=== PATIENT | female | born 1990 | race Caucasian/White ===

== ENCOUNTER → 2020-11-12 16:09 | Outpatient (BNV) | payer MEDICAID, SELFPAY | PROVIDERS: PCP Nurse Practitioner Family; Visit Provider Internal Medicine Medical Oncology | DX: D64.9 Anemia, unspecified (principal) | CPT/HCPCS: 99213; 99214 ==

== ENCOUNTER 2020-11-18 14:15 | Outpatient (REF) | payer MEDICAID, SELFPAY | END 2020-11-18 14:16 | disposition home or self-care (01) | LOC: HO.MDS 14:15 | PROVIDERS: Visit Provider Internal Medicine Medical Oncology | DX: D50.9 Iron deficiency anemia, unspecified (principal) | CPT/HCPCS: 96365; J1439 ==

== ENCOUNTER 2020-11-29 11:51 | Outpatient (REF) | payer MEDICAID, SELFPAY | END 2020-11-29 11:52 | disposition home or self-care (01) | LOC: HO.MDS 11:51 | PROVIDERS: Visit Provider Internal Medicine Medical Oncology | DX: D50.9 Iron deficiency anemia, unspecified (principal) | CPT/HCPCS: 96365; J1439 ==

== ENCOUNTER 2020-12-14 13:12 | Emergency (ER) | payer MEDICAID, SELFPAY ==
[2020-12-14 17:45] VITALS: BP 156/92; PULSE 81; RESP 20; TEMP 37.3; O2SAT 100; BMI 29.2
[2020-12-14 18:27] LABS: COVID-19 Test Negative (Negative)
--- NOTE | 2020-12-14 19:10 | ED_ITS ---
HPI - URI/Sore Throat General Chief Complaint: Upper Respiratory Symptoms Stated Complaint: COUGH FEVER SORE THROAT Time Seen by Provider: 12/14/20 19:02 Source: patient Mode of arrival: ambulatory Limitations: no limitations History of Present Illness HPI Narrative: 30-year-old here with complaints of cough which is dry, subjective fevers and sore throat with rhinorrhea x2 days. No shortness of breath, chest pain, leg swelling or pain. Related Data Home Medications Medication Instructions Recorded Confirmed acetaminophen [Tylenol] 325 mg PO QID PRN 11/12/20 11/12/20 cetirizine [Zyrtec] 10 mg PO DAILY 11/12/20 11/12/20 Previous Rx's Medication Instructions Recorded folic acid 1 mg PO DAILY #90 tab 11/12/20 guaifenesin 200 mg PO Q6H PRN #473 ml 12/14/20 Allergies Allergy/AdvReac Type Severity Reaction Status Date / Time influenza virus vaccine, Allergy Intermediate FEVER, Verified 12/14/20 18:57 specific DIARRHEA [FLU VACCINE] avocado [AVOCADO] Allergy Unknown ITCHING Verified 12/14/20 18:57 bee pollen [BEE STINGS] Allergy Unknown SWELLING Verified 12/14/20 18:57 nut - unspecified [nut] Allergy Unknown ITCHING Verified 12/14/20 18:57 shellfish derived Allergy Unknown ITCHING Verified 12/14/20 18:57 [SHELLFISH DERIVED] avacado Allergy Unknown Difficulty Uncoded 12/14/20 18:57 Breathing bee stings Allergy Unknown Swelling Uncoded 12/14/20 18:57 pistachios Allergy Unknown Difficulty Uncoded 12/14/20 18:57 Breathing seafood Allergy Unknown SOB, rash Uncoded 01/19/20 00:00 seasonal allergies Allergy Unknown Nasal Uncoded 12/14/20 18:57 congestion Review of Systems Review of Systems: Yes all other systems are reviewed and are negative Constitutional: Constitutional: Reports no additional constitutional complaints, Denies body ache(s), Denies chills, Reports fever(s) (Subjective), Denies headache(s) and Denies weakness Eyes: Eyes: Reports no additional eye complaints and Denies change in vision ENT: Reports system reviewed and no additional complaints, except as documented, Denies dizziness, Denies headache(s), Denies nasal congestion, Reports nasal discharge, Denies neck pain and Reports sore throat Cardiovascular: Cardiovascular: Reports no additional cardiovascular complaints, Denies chest pain, Denies leg edema and Denies dyspnea Respiratory: Respiratory: Reports no additional respiratory complaints, Reports cough and Denies dyspnea Gastrointestinal: Gastrointestinal: Reports no additional gastrointestinal complaints, Denies abdominal pain, Denies diarrhea, Denies nausea and Denies vomiting Genitourinary: Genitourinary: Reports no additional female genitourinary complaints and Denies urinary incontinence Musculoskeletal: Musculoskeletal: Reports no additional musculoskeletal complaints, Denies back pain, Denies arthralgias, Denies joint swelling, Denies neck pain, Denies numbness and Denies tingling Integumentary/Breasts: Skin/Breast: Reports system reviewed and no additional complaints, except as docu and Denies rash Neurologic: Denies Abnormal speech present, Denies dizziness, Denies headache( s), Denies numbness, Denies tingling and Denies weakness PMFSH Past Medical History Attestation statement: The following information was validated with the patient. Source: old records reviewed and nursing notes reviewed Medical History Anemia Surgical History H/O: Hx of cholecystectomy Family History Family History Maternal Grandmother Diabetes Asthma Mother High cholesterol Anemia Arthritis Social History Social History Advance Directives: Yes Advance Directives Information Provided: No Advance Directives on File: No Patient : No Physical Exam Vital Signs: Vital Signs: Last Vital Signs Temp 99.1 F 12/14/20 17:45 Pulse 81 12/14/20 17:45 Resp 20 12/14/20 17:45 BP 156/92 H 12/14/20 17:45 Pulse Ox 100 12/14/20 17:45 Body Mass Index 29.2 Const: General: cooperative, healthy appearing, comfortable and no acute distress Orientation/consciousness: patient oriented x3 Limitations: no limitations HENMT: Head: Yes normal to inspection Ears: hearing grossly normal bilaterally General nose exam: Normal external nose present Face and sinus: Yes normal facial exam Mouth: Normal oral and palatal mucosa present Throat: Yes posterior oropharynx normal Eyes: General: appearance normal, both eyes and all related structures Pupils: Equal, round and reactive pupils present Neck: Neck: Yes normal visual inspection Chest: Chest palpation & inspection: normal inspection of the chest Resp: Effort & Inspection: normal respiratory effort Auscultation: clear to auscultation bilaterally Cardio: Rate: regular rate Rhythm: regular rhythm Peripheral pulses: Peripheral pulses 2+ throughout GI: Inspection: Yes normal to inspection Palpation (GI): Soft to palpation and nontender Auscultation: normal bowel sounds Back/Spine/Pelvis: Thoracic/Lumbar Spine: thoracic and lumbar spine normal to inspection Skin: General skin exam: no rashes or lesions noted Neuro: General: patient oriented x3, no focal motor deficits and normal sensation to monofilament Cranial nerves: Yes Equal, round and reactive pupils present Cognition (Neuro): normal cognition Speech: No Abnormal speech present Gait exam (Neuro): Normal gait present Motor exam (neuro): 5/5 motor strength present throughout Extrem: General: Yes normal to inspection, Yes no pedal edema and Yes no calf tenderness Course Course Course Narrative: 30-year-old female here with complaints of subjective fever, cough, runny nose and sore throat x2 days. Exam is benign. Will send COVID testing -COVID screen negative. Likely viral syndrome. Reviewed worrisome signs and when to return to the emergency department. Comfortable discharge home. MDM - URI/Sore Throat Medical Records Attestation: I reviewed the patient's medical records. Lab Data Attestation: I reviewed the patient's lab results. Labs: Lab Results 12/14/20 Range/Units 18:05 COVID-19 ([facility]) Negative (Negative) COVID-19 Clin Com See Note Discharge Plan Discharge Clinical Impression: Viral infection Patient Disposition: Home, Self-Care Instructions: Viral Syndrome (ED) Additional Instructions: Your COVID test was negative Increase fluids, rest Prescriptions: New guaifenesin 100 mg/5 mL liquid 200 mg PO Q6H PRN (Reason: cough) Qty: 473 RF: 0 No Action acetaminophen [Tylenol] 325 mg Tablet 325 mg PO QID PRN (Reason: Pain) RF: 0 cetirizine [Zyrtec] 10 mg Tablet 10 mg PO DAILY RF: 0 folic acid 1 mg Tablet 1 mg PO DAILY Qty: 90 RF: 4 Referrals: Naeem Mcduffie NP [Primary Care Provider] - 2 days Interventions: ED Discharge Assessment Last Done: 12/14/20 20:00 Discharge Date/Time: 12/14/20 20:00
== END 2020-12-14 20:00 | disposition home or self-care (01) ==
PROVIDERS: Emergency Provider Internal Medicine; PCP Nurse Practitioner Family
DX: B34.9 Viral infection, unspecified (principal); Z20.822 Contact with and (suspected) exposure to COVID-19; R50.9 Fever, unspecified
CPT/HCPCS: 36415; 87635; 99283; 99284

== ENCOUNTER 2021-07-17 11:08 | Outpatient (REF) | payer MEDICAID, SELFPAY ==
[2021-07-17 13:24] LABS: COVID-19 Test Negative (Negative)
== END 2021-07-17 11:09 | disposition home or self-care (01) ==
LOC: HO.LAB 11:08
PROVIDERS: Visit Provider Internal Medicine
DX: Z20.822 Contact with and (suspected) exposure to COVID-19 (principal)
CPT/HCPCS: 87635; C9803

== ENCOUNTER 2021-08-26 14:07 | Outpatient (REF) | payer MEDICAID, SELFPAY | END 2021-08-26 14:08 | disposition home or self-care (01) | LOC: HO.MDS 14:07 | PROVIDERS: Visit Provider Internal Medicine Medical Oncology | DX: D50.9 Iron deficiency anemia, unspecified (principal) | CPT/HCPCS: 96365; J2916 ==

== ENCOUNTER 2021-09-04 12:18 | Outpatient (REF) | payer MEDICAID, SELFPAY | END 2021-09-04 12:19 | disposition home or self-care (01) | LOC: HO.MDS 12:18 | PROVIDERS: Visit Provider Internal Medicine Medical Oncology | DX: D50.9 Iron deficiency anemia, unspecified (principal) | CPT/HCPCS: 96365; J2916 ==

== ENCOUNTER 2021-09-18 11:38 | Outpatient (REF) | payer MEDICAID, SELFPAY ==
[2021-09-18 12:10] LABS: MANUAL DIFF FLAG NO
[2021-09-18 12:15] LABS: Basophils Absolute Auto 0.1 X10*3/uL (0.0-0.2); Basophils Percent Auto 0.5 % (0-2); Eosinophils Absolute Auto 0.2 X10*3/uL (0.0-0.4); Eosinophils Percent Auto 2.3 % (0-4); Hematocrit 38.1 % (37.0-47.0); Hemoglobin 11.2 g/dl (12.0-16.0); Imm Gran Abs Auto 0.05 X10*3/uL (0.00-0.03); Imm Gran Pct Auto 0.5 % (0.0-0.4); Lymphocytes Absolute Auto 2.4 X10*3/uL (1.2-4.9); Lymphocytes Percent Auto 25.4 % (20-40); Mean Corpuscular HGB Conc 29.4 g/dl (31.0-35.0); Mean Corpuscular Hemoglobin 23.9 pg (27.0-33.0); Mean Corpuscular Volume 81.4 fL (80.0-98.0); Mean Platelet Volume 10.5 fL (9.4-12.3); Monocytes Absolute Auto 0.4 X10*3/uL (0.1-1.2); Monocytes Percent Auto 3.9 % (2-11); Neutrophils Absolute Auto 6.4 x10*3/uL (2.0-8.3); Neutrophils Percent Auto 67.4 % (45-73); Platelet Count 472 X10*3/uL (160-400); Red Blood Count 4.68 X10*6/uL (4.20-5.50); Red Cell Distribution Width 16.4 % (11.0-16.0); White Blood Count 9.5 X10*3/uL (4.8-10.8)
== END 2021-09-18 11:39 | disposition home or self-care (01) ==
LOC: HO.MDS 11:38
PROVIDERS: Visit Provider Internal Medicine Medical Oncology
DX: D50.9 Iron deficiency anemia, unspecified (principal)
CPT/HCPCS: 36415; 85025; 96365; J2916

== ENCOUNTER 2021-12-13 17:02 | Emergency (ER) | payer MEDICAID, SELFPAY ==
[2021-12-13 17:17] VITALS: BP 126/92; PULSE 81; RESP 18; TEMP 37.1; O2SAT 99; BMI 40.6
--- NOTE | 2021-12-13 17:39 | ED.GENADULT ---
HPI - General Adult General Chief complaint: Allergic Reaction Stated complaint: Asthmatic, allergies Time Seen by Provider: 12/13/21 17:19 Source: patient Mode of arrival: ambulatory Limitations: no limitations History of Present Illness HPI narrative: 31-year-old female with a history of seasonal allergies and asthma here with reports of 3 days of runny nose, nasal congestion, sneezing, cough, scratchy throat. Patient using Flonase, Zyrtec, of uteri with continued symptoms. No shortness of breath, chest pain, vomiting, diarrhea, fever. Patient did a COVID test yesterday that was negative. Patient has had COVID twice most recently September of 2021. She has received 2 COVID vaccinations of [employer] Related Data Home Medications Medication Instructions Recorded Confirmed acetaminophen 325 mg tablet 325 mg PO QID PRN Pain 11/12/20 09/22/21 (Tylenol) cetirizine 10 mg tablet (Zyrtec) 10 mg PO DAILY PRN Allergy Symptoms 11/12/20 09/22/21 Previous Rx's Medication Instructions Recorded guaifenesin 200 mg/5 mL oral liquid 200 mg (5 mL) PO Q6H PRN cough 12/13/21 #118 mL prednisone 20 mg tablet 40 mg PO DAILY #10 tabs 12/13/21 Allergies Allergy/AdvReac Type Severity Reaction Status Date / Time influenza virus vaccine, Allergy Intermediate FEVER, Verified 12/13/21 17:32 specific DIARRHEA [FLU VACCINE] avocado [AVOCADO] Allergy Unknown ITCHING Verified 12/13/21 17:32 bee pollen [BEE STINGS] Allergy Unknown SWELLING Verified 12/13/21 17:32 nut - unspecified [nut] Allergy Unknown ITCHING Verified 12/13/21 17:32 shellfish derived Allergy Unknown ITCHING Verified 12/13/21 17:32 [SHELLFISH DERIVED] avacado Allergy Unknown Difficulty Uncoded 09/22/21 13:57 Breathing bee stings Allergy Unknown Swelling Uncoded 09/22/21 13:57 pistachios Allergy Unknown Difficulty Uncoded 09/22/21 13:57 Breathing seafood Allergy Unknown SOB, rash Uncoded 09/22/21 13:57 seasonal allergies Allergy Unknown Nasal Uncoded 09/22/21 13:57 congestion Review of Systems Review of Systems: Yes all other systems are reviewed and are negative Constitutional: Constitutional: Reports no additional constitutional complaints, Denies body ache(s), Denies chills, Denies fever(s), Reports headache(s) and Denies weakness Eyes: Eyes: Reports no additional eye complaints and Denies change in vision ENT: Reports system reviewed and no additional complaints, except as documented, Denies dizziness, Reports headache(s), Reports nasal congestion, Reports nasal discharge, Denies neck pain and Reports post nasal drip Comments: sneezing Cardiovascular: Cardiovascular: Reports no additional cardiovascular complaints, Denies chest pain, Denies leg edema and Denies dyspnea Respiratory: Respiratory: Reports no additional respiratory complaints, Reports cough and Denies dyspnea Gastrointestinal: Gastrointestinal: Reports no additional gastrointestinal complaints, Denies abdominal pain, Denies diarrhea, Denies nausea and Denies vomiting Genitourinary: Genitourinary: Reports no additional female genitourinary complaints and Denies urinary incontinence Musculoskeletal: Musculoskeletal: Reports no additional musculoskeletal complaints, Denies back pain, Denies arthralgias, Denies joint swelling, Denies neck pain, Denies numbness and Denies tingling Integumentary/Breasts: Skin/Breast: Reports system reviewed and no additional complaints, except as docu and Denies rash Neurologic: Reports system reviewed and no additional complaints, except as documented, Denies dizziness, Reports headache(s), Denies numbness, Denies tingling and Denies weakness PMFSH Past Medical History Attestation statement: The following information was validated with the patient. Source: old records reviewed and nursing notes reviewed Medical History Anemia Surgical History H/O: Hx of cholecystectomy Family History Family History Maternal Grandmother Diabetes Asthma Mother High cholesterol Anemia Arthritis Social History Social History Household Members: Spouse and Children Housing: Apartment Are you a primary day care assistant to a significant other at home: No Do you presently have visiting nurse or other home services: No Alcohol intake: never Patient Tobacco Use Status: Never used Tobacco Advance Directives: No Advance Directives Information Provided: No service: No Current occupational status: unemployed Physical Exam ED Vital Signs: Vital Signs - 24 hr 12/13/21 17:17 Temperature 98.7 F Pulse Rate 81 Respiratory Rate 18 Blood Pressure 126/92 H Pulse Oximetry 99 Oxygen Delivery Method Room Air BMI result Body Mass Index 40.6 Const General: cooperative, healthy appearing, comfortable and no acute distress Orientation/consciousness: patient oriented x3 Limitations: no limitations HENMT Head: Yes normal to inspection Ears: hearing grossly normal bilaterally and TM's normal bilaterally General nose exam: Normal external nose present Face and sinus: Yes normal facial exam Mouth: Normal oral and palatal mucosa present Throat: Yes posterior oropharynx normal, Yes tonsils normal and Yes uvula midline Eyes General: appearance normal, both eyes and all related structures Pupils: Equal, round and reactive pupils present Neck Neck: Yes normal visual inspection, Yes full ROM and Yes no lymphadenopathy Chest Chest palpation & inspection: normal inspection of the chest Resp Effort & Inspection: normal respiratory effort Auscultation: clear to auscultation bilaterally Cardio Rate: regular rate Rhythm: regular rhythm Peripheral pulses: Peripheral pulses 2+ throughout GI Inspection: Yes normal to inspection Back/Spine/Pelvis Thoracic/Lumbar Spine: thoracic and lumbar spine normal to inspection Skin General skin exam: no rashes or lesions noted Neuro General: patient oriented x3 and moves all extremities Cranial nerves: Yes Equal, round and reactive pupils present Extrem General: Yes normal to inspection Course Course Course Narrative: 31-year-old female here with reports of cough, sneezing, congestion, runny nose, postnasal drip for the last 3 days unrelieved with home medications. Patient tells me her asthma is usually triggered by her seasonal allergies and due to this she has had some cough and wheezing having to use her albuterol inhaler. Patient does not want any COVID testing. Her exam is benign. Will treat her for seasonal allergies and asthma flare with prednisone course and cough suppressant. Reviewed worrisome signs and symptoms of when to return to the emergency department. Comfortable discharge home. Medical Decision Making Medical Records Medical records reviewed: Yes I reviewed the patient's medical records. Discharge Plan Discharge Clinical Impression: Acute seasonal allergic rhinitis, Asthma Patient Disposition: Home, Self-Care Instructions: Asthma (ED), Allergic Rhinitis (ED) Additional Instructions: Continue your home medication Increase fluids, rest Follow-up with primary care doctor for any persistent symptoms Prescriptions: New prednisone 20 mg tablet 40 mg PO DAILY Qty: 10 0RF guaifenesin 200 mg/5 mL liquid 200 mg PO Q6H PRN (Reason: cough) Qty: 118 0RF No Action acetaminophen [Tylenol] 325 mg Tablet 325 mg PO QID PRN (Reason: Pain) cetirizine [Zyrtec] 10 mg Tablet 10 mg PO DAILY PRN (Reason: Allergy Symptoms) Referrals: Physician,Unknown J [Physician] - 1 week (As needed)
== END 2021-12-13 18:02 | disposition home or self-care (01) ==
PROVIDERS: Emergency Provider Internal Medicine; PCP Nurse Practitioner Family
DX: J45.909 Unspecified asthma, uncomplicated (principal); Z86.16 Personal history of COVID-19
CPT/HCPCS: 99283

== ENCOUNTER 2022-05-08 11:14 | Outpatient (REF) | payer MEDICAID, SELFPAY | END 2022-05-08 11:15 | disposition home or self-care (01) | LOC: HO.MDS 11:14 | PROVIDERS: Visit Provider Internal Medicine Medical Oncology | DX: D50.9 Iron deficiency anemia, unspecified (principal) | CPT/HCPCS: 96365; J1756 ==

== ENCOUNTER 2022-05-19 13:21 | Outpatient (REF) | payer MEDICAID, SELFPAY | END 2022-05-19 13:22 | disposition home or self-care (01) | LOC: HO.MDS 13:21 | PROVIDERS: Visit Provider Internal Medicine Medical Oncology | DX: D50.9 Iron deficiency anemia, unspecified (principal) | CPT/HCPCS: 96365; J1756 ==

== ENCOUNTER 2022-05-26 12:49 | Outpatient (REF) | payer MEDICAID, SELFPAY | END 2022-05-26 12:50 | disposition home or self-care (01) | LOC: HO.MDS 12:49 | PROVIDERS: Visit Provider Internal Medicine Medical Oncology | DX: D50.9 Iron deficiency anemia, unspecified (principal) | CPT/HCPCS: 96365; J1756 ==

== ENCOUNTER 2022-06-18 13:18 | Outpatient (REF) | payer MEDICAID, SELFPAY ==
[2022-06-18 14:28] LABS: MANUAL DIFF FLAG NO
[2022-06-18 14:32] LABS: Basophils Absolute Auto 0.1 X10*3/uL (0.0-0.2); Basophils Percent Auto 0.5 % (0-2); Eosinophils Absolute Auto 0.2 X10*3/uL (0.0-0.4); Eosinophils Percent Auto 2.6 % (0-4); Hematocrit 36.3 % (37.0-47.0); Hemoglobin 10.6 g/dl (12.0-16.0); Imm Gran Abs Auto 0.02 X10*3/uL (0.00-0.03); Imm Gran Pct Auto 0.2 % (0.0-0.4); Lymphocytes Absolute Auto 1.9 X10*3/uL (1.2-4.9); Lymphocytes Percent Auto 20.7 % (20-40); Mean Corpuscular HGB Conc 29.2 g/dl (31.0-35.0); Mean Corpuscular Hemoglobin 21.3 pg (27.0-33.0); Mean Corpuscular Volume 72.9 fL (80.0-98.0); Mean Platelet Volume 10.3 fL (9.4-12.3); Monocytes Absolute Auto 0.5 X10*3/uL (0.1-1.2); Monocytes Percent Auto 5.7 % (2-11); Neutrophils Absolute Auto 6.5 x10*3/uL (2.0-8.3); Neutrophils Percent Auto 70.3 % (45-73); Platelet Count 454 X10*3/uL (160-400); Red Blood Count 4.98 X10*6/uL (4.20-5.50); White Blood Count 9.2 X10*3/uL (4.8-10.8)
== END 2022-06-18 13:19 | disposition home or self-care (01) ==
LOC: HO.MDS 13:18
PROVIDERS: Visit Provider Internal Medicine Medical Oncology
DX: D50.9 Iron deficiency anemia, unspecified (principal)
CPT/HCPCS: 36415; 85025; 96365; J1756

== ENCOUNTER 2023-02-10 11:41 | Outpatient (REF) | payer MEDICAID, SELFPAY | END 2023-02-10 11:42 | disposition home or self-care (01) | LOC: HO.MDS 11:41 | PROVIDERS: Visit Provider Internal Medicine Medical Oncology | DX: D50.9 Iron deficiency anemia, unspecified (principal) | CPT/HCPCS: 96365; J1439 ==

== ENCOUNTER 2023-02-17 13:08 | Outpatient (REF) | payer MEDICAID, SELFPAY | END 2023-02-17 13:09 | disposition home or self-care (01) | LOC: HO.MDS 13:08 | PROVIDERS: Visit Provider Internal Medicine Medical Oncology | DX: D50.8 Other iron deficiency anemias (principal) | CPT/HCPCS: 96365; J1439 ==

== ENCOUNTER 2024-01-30 16:36 | Emergency (ER) | payer MEDICAID, SELFPAY ==
--- NOTE | ~2024-01-30 | XR_ITS ---
EXAMINATION: XR SACRUM AND COCCYX CLINICAL INFORMATION: Fall, pain COMPARISON: None available. TECHNIQUE: 2 views of the sacrum and 2 views of the coccyx were obtained. FINDINGS: There are no fractures. No bone, joint or soft tissue abnormality is demonstrated. XR/XR sacrum coccyx min 2V IMPRESSION: Unremarkable examination.
--- NOTE | ~2024-01-30 | XR_ITS ---
EXAMINATION: XR ANKLE, LEFT CLINICAL INFORMATION: fall/ pain/ swelling COMPARISON: None available. TECHNIQUE: AP, lateral, and mortise views of the left ankle. FINDINGS: Soft tissues are swollen at the left ankle. Small avulsed fracture fragment present at the tip of lateral malleolus. The adjacent soft tissue swelling, these may be acute. Additionally, there is cortical irregularity along the posterior margin of the lateral malleolus as seen on the lateral view which could be due to a separate avulsion fracture. Ankle mortise is symmetric. No joint effusion. Small enthesopathic spur is present at the plantar fascial origin on the calcaneus. XR/XR ankle LT min 3V IMPRESSION: 1. Small avulsed fracture fragment at the tip of the lateral malleolus. 2. Possible separate avulsion fracture at the posterior margin of the lateral malleolus.
[2024-01-30 16:42] VITALS: BP 157/97; PULSE 73; RESP 20; TEMP 36.4; O2SAT 97; BMI 37.8
--- NOTE | 2024-01-30 17:29 | ED.LOWEXIN ---
HPI - Extremity Injury (Lower) General Chief Complaint: Extremity Injury, Lower Stated Complaint: LT ankle injury-fall today @ 1600 in [place], [place] Time Seen by Provider: 01/30/24 17:11 Source: patient Mode of arrival: wheelchair Limitations: no limitations History of Present Illness ED Provider: Eli Isaac APRN HPI Narrative: 34-year-old female with a history of anemia, scoliosis presents the ER with complaints of lower back pain and left ankle pain after a trip and fall down stairs landing on her buttocks and causing a twisting injury of her left ankle. She denies hitting her head or loss of consciousness. She reports pain in her left ankle and in her lower back. She denies any associated weakness, numbness, tingling of extremity. No numbness in the groin. No bowel or bladder incontinence. No fevers or chills. Related Data Home Medications ?Medication ?Instructions ?Recorded ?Confirmed acetaminophen 325 mg tablet 325 mg PO QID PRN Pain 11/12/20 12/09/23 (Tylenol) cetirizine 10 mg tablet (Zyrtec) 10 mg PO DAILY PRN Allergy Symptoms 11/12/20 12/09/23 Previous Rx's ?Medication ?Instructions ?Recorded folic acid 1 mg tablet 1 mg PO DAILY #90 tabs 12/09/23 Allergies Allergy/AdvReac Type Severity Reaction Status Date / Time influenza virus vaccine, Allergy Intermediate FEVER, Verified 01/30/24 16:44 specific DIARRHEA [FLU VACCINE] avocado [AVOCADO] Allergy Unknown ITCHING Verified 01/30/24 16:44 bee pollen [BEE STINGS] Allergy Unknown SWELLING Verified 01/30/24 16:44 nut - unspecified [nut] Allergy Unknown ITCHING Verified 01/30/24 16:44 shellfish derived Allergy Unknown ITCHING Verified 01/30/24 16:44 [SHELLFISH DERIVED] avacado Allergy Unknown Difficulty Uncoded 01/30/24 16:44 Breathing bee stings Allergy Unknown Swelling Uncoded 01/30/24 16:44 pistachios Allergy Unknown Difficulty Uncoded 01/30/24 16:44 Breathing seafood Allergy Unknown SOB, rash Uncoded 01/30/24 16:44 seasonal allergies Allergy Unknown Nasal Uncoded 01/30/24 16:44 congestion Review of Systems Review of Systems: Yes all other systems are reviewed and are negative Constitutional: Constitutional: Reports no additional constitutional complaints, Denies body ache(s), Denies chills, Denies fever(s), Denies headache(s) and Denies weakness Eyes: Eyes: Reports no additional eye complaints and Denies change in vision ENT: Reports system reviewed and no additional complaints, except as documented, Denies dizziness, Denies headache(s), Denies nasal congestion, Denies nasal discharge and Denies neck pain Cardiovascular: Cardiovascular: Reports no additional cardiovascular complaints, Denies chest pain, Denies leg edema and Denies dyspnea Respiratory: Respiratory: Reports no additional respiratory complaints, Denies cough and Denies dyspnea Gastrointestinal: Gastrointestinal: Reports no additional gastrointestinal complaints, Denies abdominal pain, Denies diarrhea, Denies nausea and Denies vomiting Genitourinary: Genitourinary: Reports no additional female genitourinary complaints and Denies urinary incontinence Musculoskeletal: Musculoskeletal: Reports no additional musculoskeletal complaints, Reports back pain, Reports arthralgias, Reports joint swelling, Denies limited range of motion, Denies neck pain, Denies numbness and Denies tingling Integumentary/Breasts: Skin/Breast: Reports system reviewed and no additional complaints, except as docu and Denies rash Neurologic: Reports system reviewed and no additional complaints, except as documented, Denies Abnormal speech present, Denies dizziness, Denies headache(s), Denies numbness, Denies tingling and Denies weakness PMFSH Past Medical History Attestation statement: The following information was validated with the patient. Source: old records reviewed and nursing notes reviewed Medical History Anemia Surgical History Hx of cholecystectomy H/O: Family History Family History Maternal Grandmother Diabetes Asthma Mother High cholesterol Anemia Arthritis Social History Social History Household Members: Spouse and Children Housing: Apartment Are you a primary district manager primary care sales to a significant other at home: No Do you presently have visiting nurse or other home services: No Alcohol intake: never Patient Tobacco Use Status: Never used Tobacco Advance Directives: No Advance Directives Information Provided: No Do you have a plan to hurt others: No Plan service: No Current occupational status: unemployed Physical Exam Vital Signs: Vital Signs: Last Vital Signs Temp 97.6 F 01/30/24 16:42 Pulse 73 01/30/24 16:42 Resp 20 01/30/24 16:42 BP 157/97 H 01/30/24 16:42 Pulse Ox 97 01/30/24 16:42 O2 Del Method Room Air 01/30/24 16:42 BMI result Body Mass Index 37.8 Const: General: cooperative, healthy appearing, comfortable and no acute distress Orientation/consciousness: patient oriented x3 Limitations: no limitations HEENT: Head: Yes normal to inspection Ears: hearing grossly normal bilaterally General nose exam: Normal external nose present Face and sinus: Yes normal facial exam Mouth: Normal oral and palatal mucosa present Throat: Yes posterior oropharynx normal Eyes: General: appearance normal, both eyes and all related structures Pupils: Equal, round and reactive pupils present Neck: Neck: Yes normal visual inspection Chest: Chest palpation & inspection: normal inspection of the chest Resp: Effort & Inspection: normal respiratory effort Auscultation: clear to auscultation bilaterally Cardio: Rate: regular rate Rhythm: regular rhythm Peripheral pulses: Peripheral pulses 2+ throughout GI: Inspection: Yes normal to inspection Palpation (GI): Soft to palpation and nontender Auscultation: normal bowel sounds Back/Spine/Pelvis: Thoracic/Lumbar Spine: thoracic and lumbar spine normal to inspection Coccyx: no swelling and Coccyx tenderness present Skin: General skin exam: no rashes or lesions noted Neuro: General: patient oriented x3, moves all extremities, no focal motor deficits and normal sensation to monofilament Cranial nerves: Yes Equal, round and reactive pupils present Cognition (Neuro): normal cognition Speech: No Abnormal speech present Gait exam (Neuro): Normal gait present Motor exam (neuro): 5/5 motor strength present throughout Sensory Exam: Normal double simultaneous stimulation for sensation Extrem: Other: Tenderness over the left lateral ankle with swelling and ecchymosis. No pain or tenderness over the medial ankle or the anterior or the posterior ankle. No foot pain. 2+ DP and PT pulses. Normal sensation. Negative Bautista sign. Course Course Course Narrative: X-rays of the left ankle show lateral malleolus fracture. X-rays of the sacrum and coccyx show no acute finding. Patient will be placed in air splint and given crutches for home. Reviewed rice. Reviewed orthopedic follow-up. Reviewed worrisome signs and symptoms of when to return to the emergency room. Comfortable plan for discharge home. Medications Administered Discontinued Medications Generic Name Dose Route Start Last Admin Trade Name Mirta PRN Reason Stop Dose Admin Ibuprofen 600 mg 01/30/24 17:28 01/30/24 17:31 Ibuprofen 600 Mg Tablet PO 01/30/24 17:29 600 mg ONCE ONE Administration Medical Decision Making Medical Decision Making MDM Narrative: 34-year-old female with a history of anemia, scoliosis presents the ER with complaints of lower back pain and left ankle pain after a trip and fall down stairs landing on her buttocks and causing a twisting injury of her left ankle. She denies hitting her head or loss of consciousness. She reports pain in her left ankle and in her lower back. She denies any associated weakness, numbness, tingling of extremity. No numbness in the groin. No bowel or bladder incontinence. No fevers or chills. +pain on palp to coccyx +tenderness over the left lateral ankle with swelling and ecchymosis. No pain or tenderness over the medial ankle or the anterior or the posterior ankle. No foot pain. 2+ DP and PT pulses. Normal sensation. Negative Bautista sign. Will check x-rays, provide analgesia Differential Diagnosis Differential Diagnoses: The differential diagnosis associated with the presentation includes Contusion, fracture, sprain Low suspicion for complex fracture, dislocation or vascular injury Admission/Observation Consideration of admission/observation: Escalation of care including admission/observation considered Low suspicion for complex fracture, dislocation or vascular injury requiring advanced imaging, urgent orthopedic consultation Independent Interpretation I performed an independent interpretation of an: Plain X-Ray Interpretation: I independently reviewed the x-ray and agree with the radiology report Radiology Impression Discussion of test interpretation with radiology: I have reviewed the radiologist's reading. Radiologist Impression: [address] [address] XRay Report Signed Patient: Zita Reynolds MR#: [id number] : 1990 Acct:[id number] Age/Sex: 34 / F ADM Date: 01/30/24 Loc: HO.ED Attending Dr: Ordering Physician: Generic ED Physician Date of Service: 01/30/24 Procedure(s): XR ankle LT min 3V Accession Number(s): [id number] cc: Generic ED Physician; Physician,Unknown ~ EXAMINATION: XR ANKLE, LEFT CLINICAL INFORMATION: fall/ pain/ swelling COMPARISON: None available. TECHNIQUE: AP, lateral, and mortise views of the left ankle. FINDINGS: Soft tissues are swollen at the left ankle. Small avulsed fracture fragment present at the tip of lateral malleolus. The adjacent soft tissue swelling, these may be acute. Additionally, there is cortical irregularity along the posterior margin of the lateral malleolus as seen on the lateral view which could be due to a separate avulsion fracture. Ankle mortise is symmetric. No joint effusion. Small enthesopathic spur is present at the plantar fascial origin on the calcaneus. XR/XR ankle LT min 3V IMPRESSION: 1. Small avulsed fracture fragment at the tip of the lateral malleolus. 2. Possible separate avulsion fracture at the posterior margin of the lateral malleolus. [place] [address] XRay Report Signed Patient: Zita Reynolds MR#: [id number] : 1990 Acct:[id number] Age/Sex: 34 / F ADM Date: 01/30/24 Loc: .ED Attending Dr: Ordering Physician: Eli Dickey NP Date of Service: 01/30/24 Procedure(s): XR sacrum coccyx min 2V Accession Number(s): [id number] cc: Physician,Unknown ; Eli Dickey MANAGER RENTAL~ EXAMINATION: XR SACRUM AND COCCYX CLINICAL INFORMATION: Fall, pain COMPARISON: None available. TECHNIQUE: 2 views of the sacrum and 2 views of the coccyx were obtained. FINDINGS: There are no fractures. No bone, joint or soft tissue abnormality is demonstrated. XR/XR sacrum coccyx min 2V IMPRESSION: Unremarkable examination. Procedures Orthopedic Splinting/Casting Injury #1: Side: left Lower Extremity Injury Location: ankle Lower Extremity Immobilizer: AirCast Other Orthopedic Equipment: crutches Discharge Plan Discharge Clinical Impression: Avulsion fracture of lateral malleolus Patient Disposition: Home, Self-Care Instructions: Ankle Fracture (ED), Crutch Instructions (ED) Additional Instructions: Rest, ice, elevation. Use the crutches with nonweightbearing until you are followed up by Orthopedics Take Motrin or Tylenol for any pain as needed X-rays of your coccyx show no fractures Prescriptions: No Action acetaminophen [Tylenol] 325 mg Tablet 325 mg PO QID PRN (Reason: Pain) cetirizine [Zyrtec] 10 mg Tablet 10 mg PO DAILY PRN (Reason: Allergy Symptoms) folic acid 1 mg Tablet 1 mg PO DAILY Qty: 90 4RF Referrals: [facility] [place] Orth[facility] Surgeons [Provider Group] - 1 week Print Language: Wolof
[2024-01-30] MEDS: Ibuprofen 600 MG TABLET PO (17:31)
[2024-01-30 18:39] VITALS: BP 157/97; PULSE 73; RESP 20; TEMP 36.4; O2SAT 97
== END 2024-01-30 18:41 | disposition home or self-care (01) ==
PROVIDERS: Emergency Provider Emergency Medicine
DX: S82.62XA Displaced fracture of lateral malleolus of left fibula, initial encounter for closed fracture (principal); M54.50 Low back pain, unspecified; M25.572 Pain in left ankle and joints of left foot; M53.3 Sacrococcygeal disorders, not elsewhere classified; W10.8XXA Fall (on) (from) other stairs and steps, initial encounter; Y93.89 Activity, other specified; Y92.89 Other specified places as the place of occurrence of the external cause; Y99.8 Other external cause status; Z79.899 Other long term (current) drug therapy
CPT/HCPCS: 29515; 72220; 73610; 99283; 99284

== ENCOUNTER 2024-02-15 09:30 | Outpatient (RCR) | payer MEDICAID, SELFPAY ==
[2023-12-21 09:23] VITALS: BP 133/73; PULSE 90; RESP 20; TEMP 37; O2SAT 99
[2023-12-21] MEDS: Sodium Ferric Gluconat/Sucrose 125 MG in 0.9 % Sodium Chloride 100 ML 100 MG IV (09:52)
[2023-12-28 10:32] VITALS: BP 135/71; PULSE 73; RESP 16; TEMP 36.6; O2SAT 97
[2023-12-28] MEDS: Sodium Ferric Gluconat/Sucrose 125 MG in 0.9 % Sodium Chloride 100 ML 100 MG IV (11:02)
[2024-01-04 10:43] VITALS: BP 136/81; PULSE 89; RESP 16; TEMP 36.8; O2SAT 98
[2024-01-04] MEDS: Iron Sucrose Complex 200 MG in 0.9 % Sodium Chloride 100 ML 440 MG IV (11:37)
[2024-01-04] MEDS: 0.9 % Sodium Chloride Flush 10 ML SYRINGE 5 ML IVFLUSH (11:56)
[2024-01-18 10:12] VITALS: BP 133/89; PULSE 81; RESP 18; TEMP 36.8; O2SAT 99
[2024-01-18] MEDS: Iron Sucrose Complex 200 MG in 0.9 % Sodium Chloride 100 ML 440 MG IV (10:48)
[2024-01-25 09:48] VITALS: BP 141/80; PULSE 69; RESP 14; TEMP 36.4; O2SAT 99
[2024-01-25] MEDS: Iron Sucrose Complex 200 MG in 0.9 % Sodium Chloride 100 ML 440 MG IV (10:00)
[2024-02-08 10:18] VITALS: BP 139/87; PULSE 71; RESP 14; TEMP 36.3; O2SAT 98
[2024-02-08] MEDS: Iron Sucrose Complex 200 MG in 0.9 % Sodium Chloride 100 ML 440 MG IV (10:30)
[2024-02-08] MEDS: 0.9 % Sodium Chloride Flush 10 ML SYRINGE 5 ML IVFLUSH (10:57)
[2024-02-15 09:19] VITALS: BP 137/91; PULSE 68; RESP 14; TEMP 36.8; O2SAT 99
[2024-02-15 09:41] LABS: Hematocrit 38.7 % (37.0-47.0); Hemoglobin 12.1 g/dl (12.0-16.0); Mean Corpuscular HGB Conc 31.3 g/dl (31.0-35.0); Mean Corpuscular Hemoglobin 24.1 pg (27.0-33.0); Mean Corpuscular Volume 76.9 fL (80.0-98.0); Mean Platelet Volume 10.2 fL (9.4-12.3); Platelet Count 387 X10*3/uL (160-400); Red Blood Count 5.03 X10*6/uL (4.20-5.50); White Blood Count 7.3 X10*3/uL (4.8-10.8)
[2024-02-15] MEDS: 0.9 % Sodium Chloride Flush 10 ML SYRINGE 5 ML IVFLUSH ×2 (09:46→10:09)
[2024-02-15] MEDS: Iron Sucrose Complex 200 MG in 0.9 % Sodium Chloride 100 ML 440 MG IV (09:50)
[2024-02-15 10:25] LABS: Ferritin 237 ng/mL (10-122)
== END 2024-02-21 11:05 | disposition home or self-care (01) ==
LOC: HO.INF 09:30
PROVIDERS: Visit Provider Internal Medicine Medical Oncology
DX: D50.9 Iron deficiency anemia, unspecified (principal)
CPT/HCPCS: 36415; 82728; 85027; 96365; J1756; J2916

== ENCOUNTER 2024-02-18 07:55 | Outpatient (AMB) | payer MEDICAID, SELFPAY ==
--- NOTE | 2024-02-18 08:07 | MHC.OFFVIS ---
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 Patient reports she tripped and fell down stairs landing on her buttocks causing a twisting motion in her left ankle. Currently, her ankle is feeling okay today. She mentions when she is going down stair her pain is worse. Her pain is on the lateral aspect of the ankle. Allergies influenza virus vaccine, specific [FLU VACCINE] Allergy (Intermediate, Verified 02/18/24 08:12) FEVER, DIARRHEA avocado [AVOCADO] Allergy (Unknown, Verified 02/18/24 08:12) ITCHING bee pollen [BEE STINGS] Allergy (Unknown, Verified 02/18/24 08:12) SWELLING nut - unspecified [nut] Allergy (Unknown, Verified 02/18/24 08:12) ITCHING shellfish derived [SHELLFISH DERIVED] Allergy (Unknown, Verified 02/18/24 08:12) ITCHING avacado Allergy (Unknown, Uncoded 01/30/24 16:44) Difficulty Breathing bee stings Allergy (Unknown, Uncoded 01/30/24 16:44) Swelling pistachios Allergy (Unknown, Uncoded 01/30/24 16:44) Difficulty Breathing seafood Allergy (Unknown, Uncoded 01/30/24 16:44) SOB, rash seasonal allergies Allergy (Unknown, Uncoded 01/30/24 16:44) Nasal congestion Medication List - Last Reconciled 02/28/24 by Tevin Olguin PA-C acetaminophen (Tylenol) 325 mg PO QID PRN cetirizine (Zyrtec) 10 mg PO DAILY PRN folic acid 1 mg PO DAILY HPI 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 She reports she tripped and fell down stairs landing on her buttocks causing a twisting motion in her left ankle. She currently states she has improvement however she does have pain at the lateral aspect of her ankle that is aggravated with going downstairs. PFSH Medical History Anemia Surgical History Hx of cholecystectomy H/O: Family History Maternal Grandmother Diabetes Asthma Mother High cholesterol Anemia Arthritis Social History Household Members: Spouse and Children Housing: Apartment Are you a primary rn care manager to a significant other at home: No Do you presently have visiting nurse or other home services: No Alcohol intake: never Patient Tobacco Use Status: Never used Tobacco service: No Current occupational status: unemployed Review of Systems Const All systems reviewed & are unremarkable except as noted in HPI and below Physical Exam Vital Signs: BMI result Body Mass Index 37.8 Const General: cooperative, healthy appearing, comfortable, no acute distress, well developed and alert Orientation/consciousness: patient oriented x3 HEENT Head: Yes normal to inspection, Yes normocephalic and Yes atraumatic Eyes General: appearance normal, both eyes and all related structures Resp Effort & Inspection: normal respiratory effort and able to speak in complete sentences Cardio Rate: regular rate Peripheral pulses: Peripheral pulses 2+ throughout GI Palpation (GI): Soft to palpation Skin Lesions: no lesions Rashes: no rashes Neuro General: patient oriented x3 Extrem Other: Left ankle: Normal to inspection with mild swelling over the medial and lateral malleolus with tenderness along the soft tissues No deformity along the Achilles tendon, negative Bautista?s. No pain along the syndesmosis or anterior tibia. No laxity, NVI. Assessment & Plan Assessment & Plan (1) Left ankle sprain: Code(s): S93.402A - Sprain of unspecified ligament of left ankle, initial encounter Category: Medical Plan We discussed options which include PT, NSAIDs and bracing. The patient will proceed with PT and NSAIDs. She was also given a lace up ankle brace in the office today. If symptoms persist, she will contact me, otherwise, PRN. Orders: Orders PT Evaluation and Treatment 02/18/24 S93.402A - Sprain of unspecified ligament of left ankle, initial encounter Patient Instructions: Scribed for Tevin Olguin PA-C, by Victor Manuel Bojorquez medical service representative, on 02/18/2024 at 8:15 AM EST.? I, Tevin Olguin PA-C, have personally reviewed and agree with the information entered by the scribe. Coding Level of Care Code New Pt Level 3 (84815) Diagnoses Left ankle sprain S93.402A
[2024-02-18 08:11] VITALS: BMI 37.8
== END 2024-02-18 08:55 | disposition home or self-care (01) ==
PROVIDERS: Visit Provider Physician Assistant
DX: S93.402A Sprain of unspecified ligament of left ankle, initial encounter (principal)
CPT/HCPCS: 99203

== ENCOUNTER → 2024-02-18 07:55 | Outpatient (BNVA) | payer MEDICAID, SELFPAY | PROVIDERS: Visit Provider Physician Assistant | DX: S93.402A Sprain of unspecified ligament of left ankle, initial encounter (principal); W10.9XXA Fall (on) (from) unspecified stairs and steps, initial encounter; Y93.9 Activity, unspecified; Y92.9 Unspecified place or not applicable; Y99.9 Unspecified external cause status | CPT/HCPCS: 99212 ==

== ENCOUNTER 2024-10-21 14:55 | Emergency (ER) | payer MEDICAID, SELFPAY ==
--- NOTE | ~2024-10-21 | XR_ITS ---
CLINICAL HISTORY: upper resp sx. 2 view chest x-ray Comparison: None Findings: No consolidation or effusion. Normal size heart. No acute fracture. IMPRESSION: 1. No acute findings. This document has been electronically signed by: Hemal Valladares MD on 10/21/2024 15:38:07
[2024-10-21 15:00] VITALS: BP 137/77; PULSE 108; RESP 18; TEMP 36.4; O2SAT 100; BMI 40.2
--- NOTE | 2024-10-21 15:54 | ECG_ITS ---
Test Reason : CHEST PAIN Blood Pressure : */* mmHG Vent. Rate : 107 BPM Atrial Rate : 107 BPM P-R Int : 146 ms QRS Dur : 72 ms QT Int : 326 ms P-R-T Axes : 40 21 4 degrees QTcB Int : 435 ms Sinus tachycardia Nonspecific T wave abnormality Abnormal ECG When compared with ECG of 23-Oct-2014 07:34, No significant change was found Referred By: Raegan Castrejon Electronically Signed By: EMELYN VILLELA MD
--- NOTE | 2024-10-21 16:01 | ED_ITS ---
HPI - URI/Sore Throat General Chief Complaint: Upper Respiratory Symptoms Stated Complaint: cough hasn't gone away, body pain/chills Time Seen by Provider: 10/21/24 15:12 Source: patient Mode of arrival: ambulatory Limitations: no limitations History of Present Illness ED Provider: ALCIDES CARPIO PA-C HPI Narrative: 34-year-old female with past medical history significant for iron deficiency anemia, B12 deficiency, and asthma presents to the ED today for evaluation of dry cough x 2-3 weeks. She was initially seen by her primary care provider on 10/02/2024. Treated for possible bronchitis with amoxicillin and prednisone. No improvement in symptoms. Now endorsing a constant, diffuse chest pain. States it feels like an elephant is sitting on her chest, worse with coughing. She reports trialing Tylenol for pain without improvement. She endorses continued dry cough, associated generalized body aches, chills. Denies any sputum production. Denies hemoptysis. No recent travel or long car rides. Not on oral control. She does admit that she has a history of iron deficiency anemia. States she follows with Dr. Alonso for weekly infusions however has not received one in some time . In regards to her asthma, she has not required any breathing treatments (either inhaler or nebulizer) at home. Trialing Vicks and humidifier without relief. Related Data Home Medications ?Medication ?Instructions ?Recorded ?Confirmed acetaminophen 325 mg tablet 325 mg PO QID PRN Pain 11/12/20 02/28/24 (Tylenol) cetirizine 10 mg tablet (Zyrtec) 10 mg PO DAILY PRN Allergy Symptoms 11/12/20 02/28/24 Previous Rx's ?Medication ?Instructions ?Recorded folic acid 1 mg tablet 1 mg PO DAILY #90 tabs 12/09/23 benzonatate 100 mg capsule 100 mg PO BID PRN cough #20 caps 10/21/24 Allergies Allergy/AdvReac Type Severity Reaction Status Date / Time influenza virus vaccine, Allergy Intermediate FEVER, Verified 10/21/24 15:00 specific DIARRHEA [FLU VACCINE] avocado [AVOCADO] Allergy Unknown ITCHING Verified 10/21/24 15:00 bee pollen [BEE STINGS] Allergy Unknown SWELLING Verified 10/21/24 15:00 nut - unspecified [nut] Allergy Unknown ITCHING Verified 10/21/24 15:00 shellfish derived Allergy Unknown ITCHING Verified 10/21/24 15:00 [SHELLFISH DERIVED] avacado Allergy Unknown Difficulty Uncoded 01/30/24 16:44 Breathing bee stings Allergy Unknown Swelling Uncoded 01/30/24 16:44 pistachios Allergy Unknown Difficulty Uncoded 01/30/24 16:44 Breathing seafood Allergy Unknown SOB, rash Uncoded 01/30/24 16:44 seasonal allergies Allergy Unknown Nasal Uncoded 01/30/24 16:44 congestion Review of Systems 2 Review of Systems: Yes all other systems are reviewed and are negative [facility] Past Medical History Attestation statement: The following information was validated with the patient. Source: old records reviewed and nursing notes reviewed Medical History Anemia Surgical History Hx of cholecystectomy H/O: Family History Family History Maternal Grandmother Diabetes Asthma Mother High cholesterol Anemia Arthritis Social History Social History Household Members: Spouse and Children Housing: Apartment Are you a primary resident care assistant to a significant other at home: No Do you presently have visiting nurse or other home services: No Alcohol intake: never Patient Tobacco Use Status: Never used Tobacco service: No Current occupational status: unemployed Physical Exam 2 Vital Signs: Vital Signs: Last Vital Signs Temp 97.5 F 10/21/24 17:14 Pulse 108 H 10/21/24 17:14 Resp 18 10/21/24 17:14 BP 137/77 10/21/24 17:14 Pulse Ox 100 10/21/24 17:14 O2 Del Method Room Air 10/21/24 17:14 BMI result Body Mass Index 40.2 Tachycardic to 108, vitals otherwise WNL. Afebrile, not hypoxic General: Well appearing, in no acute distress. Skin: Warm, dry, intact. No rashes or lesions. Head: Normocephalic, atraumatic. EENT: Hearing is intact b/l. Conjunctiva clear. PERRLA. EOM intact. Moist mucous membranes.? Neck: Supple without LAD Cardiac: Chest wall symmetric. RRR. No reproducible chest wall tenderness Lungs: Normal respiratory effort without accessory muscle use. CTA bilaterally. No rales, rhonchi, or wheezes.? Abdomen: Soft, non-tender, non-distended. No rebound tenderness or guarding. Positive BS x4. Ext: no calf tenderness or pitting edema. Neuro: AOx3. Normal speech. Ambulating with steady gait. Psych: Appropriate mood and affect. Responds appropriately to questions. Course Course Course Narrative: CBC showing chronic microcytic anemia, consistent with known iron deficiency. H&H appears to be around baseline when compared to priors. Above transfusion threshold. No leukocytosis. D-dimer undetectable. PE unlikely, CTA chest not warranted at this time. Chemistry without acute electrolyte abnormality requiring intervention. No MARCOS. Liver function around baseline. Troponin undetectable. Given onset of symptoms to ED presentation, delta troponin not necessary. Negative flu, RSV. She did test positive for COVID. Chest x-ray unremarkable. There is no evidence of pneumonia. > patient just recently completed a course of amoxicillin and prednisone. She does not endorse any shortness of breath. Her main concern is cough. Her lungs are CTA bilaterally. No wheezes. Bronchospastic cough noted on exam. Will send her home with Jimmy Hale for cough. Advised Tylenol and Motrin for fevers/pain. reports improvement in chest pain following toradol admin. Patient has remained stable throughout ED visit today. Discussed worrisome signs and symptoms and when to return to the ED. All questions answered at this time. Patient is agreeable with disposition and stable for discharge. Medications Administered Discontinued Medications Generic Name Dose Route Start Last Admin Trade Name Freq PRN Reason Stop Dose Admin Ketorolac Tromethamine 30 mg 10/21/24 16:02 10/21/24 16:09 Ketorolac Tromethamine 30 Mg/Ml Vial IM 10/21/24 16:03 30 mg ONCE ONE Administration Medical Decision Making Medical Decision Making MDM Narrative: 34-year-old female with past medical history significant for iron deficiency anemia, B12 deficiency, and asthma presents to the ED today for evaluation of dry cough x 2-3 weeks and diffuse chest pain. Vitals notable for tachycardia to 108. Not hypoxic. Afebrile. She is well-appearing however becomes tearful. States this is due to her chest pain. No increased effort of breathing. No tripoding. No audible wheezes. Lungs are CTA bilaterally, no adventitious breath sounds. Posterior oropharynx WNL. Differential diagnosis includes anemia, electrolyte abnormality, viral syndrome, pneumonia, bronchitis, PE, ACS, arrhythmia, costochondritis, pleuritis PERC 1 - will order ddimer to r/o PE. screening labs, ekg, trop added. Viral swabs, chest x-ray ordered from triage. Differential Diagnosis Differential Diagnoses: The differential diagnosis associated with the presentation includes As above Admission/Observation Not indicated Lab Data MDM Lab Attestation statement: I reviewed the patient's lab results. As above 10/21/24 16:08 10/21/24 16:08 Labs: Lab Results 10/21/24 10/21/24 Range/Units 15:11 16:08 WBC 9.5 (4.8-10.8) X10*3/uL RBC 4.40 (4.20-5.50) X10*6/uL Hgb 8.9 L D (12.0-16.0) g/dl Hct 30.3 L D (37.0-47.0) % MCV 68.9 L (80.0-98.0) fL MCH 20.2 L (27.0-33.0) pg MCHC 29.4 L (31.0-35.0) g/dl RDW 18.6 H (11.0-16.0) % Plt Count 440 H (160-400) X10*3/uL MPV 9.3 L (9.4-12.3) fL Immature Gran % (Auto) 0.4 (0.0-0.4) % Neut % (Auto) 87.0 H (45-73) % Lymph % (Auto) 5.6 L (20-40) % [place] % (Auto) 4.5 (2-11) % Eos % (Auto) 2.1 (0-4) % Baso % (Auto) 0.4 (0-2) % Lymph # (Auto) 0.5 L (1.2-4.9) X10*3/uL [place] # (Auto) 0.4 (0.1-1.2) X10*3/uL Eos # (Auto) 0.2 (0.0-0.4) X10*3/uL Baso # (Auto) 0.0 (0.0-0.2) X10*3/uL Abs Immat Gran (auto) 0.04 H (0.00-0.03) X10*3/uL Absolute Neuts (auto) 8.3 (2.0-8.3) x10*3/uL Absolute Nucleated RBC 0.000 (0.0-0.012) X10*3/uL Nucleated RBC % (auto) 0.0 (0.0-0.2) /100WBC D-Dimer High Sensitivty < 150 NG/ML Sodium 136 (135-145) mmol/L Potassium 3.9 (3.3-5.1) mmol/L Chloride 107 (96-108) mmol/L Carbon Dioxide 21 L (22-29) mmol/L Anion Gap 12 (12-20) BUN 5 L (9-16) mg/dL Creatinine 0.71 (0.5-1.4) mg/dL Estim Creat Clear Calc 117.4 Estimated GFR > 60 Random Glucose 88 (60-115) mg/dL Calcium 9.0 (8.4-10.2) mg/dL Magnesium 1.8 (1.6-2.6) mg/dL Total Bilirubin 0.5 (0.0-1.0) mg/dL AST 20 (5-31) U/L ALT 25 (0-31) U/L Alkaline Phosphatase 72 (39-117) U/L Troponin I High Sens < 2.7 (<3.5-17.0) ng/L Total Protein 6.8 (6.5-8.0) g/dL Albumin 4.0 (3.5-5.0) g/dL Influenza Type A (PCR) NEGATIVE (Negative) Influenza Type B (PCR) NEGATIVE (Negative) RSV RNA Qual (PCR) NEGATIVE (Negative) SARS-CoV-2 RNA (RT-PCR) POSITIVE A (Negative) Independent Interpretation I performed an independent interpretation of an: EKG and Plain X-Ray Interpretation: Chest x-ray without infiltrate or consolidation EKG showing sinus tachycardia, no acute ischemic changes or ST elevations Radiology Impression Discussion of test interpretation with radiology: I have reviewed the radiologist's reading. Radiologist Impression: Procedure(s): XR chest 2V Accession Number(s): [id number] cc: Dale Gunter MD; Physician,Unknown ~ CLINICAL HISTORY: upper resp sx. 2 view chest x-ray Comparison: None Findings: No consolidation or effusion. Normal size heart. No acute fracture. IMPRESSION: 1. No acute findings. External Record Review External record reviewed: Inpatient record Prescription Management I considered prescription management with: Pain Medication Chronic Conditions Patient?s care impacted by: Other (anemia) Social Determinants Patient?s care significantly limited by Social Determinants of Health including: Other Social Determinant of Health Critical Care Time Critical Care Time Critical Care Time: No Discharge Plan Discharge Clinical Impression: COVID, Chronic anemia Patient Disposition: Home, Self-Care Instructions: Anemia (ED), COVID-19 (Coronavirus Disease 2019) (ED) Additional Instructions: Your blood work shows anemia, chronic when compared to prior labs. You do need to follow up with your rn faculty regarding this. Your blood work is otherwise reassuring. Your heart enzyme is normal. Your d-dimer, which is a lab that we use to check for clots in the lungs, is normal. You do not need a CT scan of your chest today. You tested positive for COVID-19. Negative for flu, RSV. Your chest x-ray does not show pneumonia. Take Ibuprofen or Tylenol as needed for fevers or body aches.? Quarantine for 5 days and ensure you wear a mask. After 5 days you should wear a mask for 5 days after that.? Practice social distancing and good hand hygiene. Drink plenty of fluids. Follow-up with your primary care provider this week. Return to the emergency department with new or worsening symptoms. In case of emergency call 911 You can purchase a pulse oximeter from your local pharmacy or grocery store, and monitor your oxygen saturation if it goes below 94% you should return to the emergency department for further evaluation. Prescriptions: New benzonatate 100 mg capsule 100 mg PO BID PRN (Reason: cough) Qty: 20 0RF No Action acetaminophen [Tylenol] 325 mg Tablet 325 mg PO QID PRN (Reason: Pain) cetirizine [Zyrtec] 10 mg Tablet 10 mg PO DAILY PRN (Reason: Allergy Symptoms) folic acid 1 mg Tablet 1 mg PO DAILY Qty: 90 4RF Referrals: Physician,Unknown J [Primary Care Provider] - Stand Alone Forms: Work/School Release Interventions: ED Discharge Assessment Last Done: 10/21/24 17:14 Discharge Date/Time: 10/21/24 17:14 Print Language: Montenegrin
[2024-10-21] MEDS: Ketorolac Tromethamine 30 MG/ML VIAL IM (16:09)
[2024-10-21 16:13] LABS: MANUAL DIFF FLAG NO
[2024-10-21 16:18] LABS: Basophils Percent Auto 0.4 % (0-2); Eosinophils Absolute Auto 0.2 X10*3/uL (0.0-0.4); Eosinophils Percent Auto 2.1 % (0-4); Hematocrit 30.3 % (37.0-47.0); Hemoglobin 8.9 g/dl (12.0-16.0); Imm Gran Abs Auto 0.04 X10*3/uL (0.00-0.03); Imm Gran Pct Auto 0.4 % (0.0-0.4); Lymphocytes Absolute Auto 0.5 X10*3/uL (1.2-4.9); Lymphocytes Percent Auto 5.6 % (20-40); Mean Corpuscular HGB Conc 29.4 g/dl (31.0-35.0); Mean Corpuscular Hemoglobin 20.2 pg (27.0-33.0); Mean Corpuscular Volume 68.9 fL (80.0-98.0); Mean Platelet Volume 9.3 fL (9.4-12.3); Monocytes Absolute Auto 0.4 X10*3/uL (0.1-1.2); Monocytes Percent Auto 4.5 % (2-11); Neutrophils Absolute Auto 8.3 x10*3/uL (2.0-8.3); Platelet Count 440 X10*3/uL (160-400); Red Cell Distribution Width 18.6 % (11.0-16.0); White Blood Count 9.5 X10*3/uL (4.8-10.8)
[2024-10-21 16:21] LABS: Influenza A PCR NEGATIVE (Negative); Influenza B PCR NEGATIVE (Negative); Resp Syncy Virus RNA Qual PCR NEGATIVE (Negative); SARS COV2 PCR INHOUSE POSITIVE (Negative)
[2024-10-21 16:36] LABS: D Dimer High Sensitivity < 150 NG/ML
[2024-10-21 16:47] LABS: Alanine Aminotransferase 25 U/L (0-31); Alkaline Phosphatase 72 U/L (39-117); Anion Gap 12 (12-20); Aspartate Amino Transferase 20 U/L (5-31); Bilirubin Total 0.5 mg/dL (0.0-1.0); Blood Urea Nitrogen 5 mg/dL (9-16); Carbon Dioxide 21 mmol/L (22-29); Chloride 107 mmol/L (96-108); Creatinine Clr Calc Pharmacy 117.4; Estimated Glomerular Filt Rate > 60; Glucose Random 88 mg/dL (60-115); Magnesium 1.8 mg/dL (1.6-2.6); Potassium 3.9 mmol/L (3.3-5.1); Sodium 136 mmol/L (135-145); Total Protein 6.8 g/dL (6.5-8.0)
[2024-10-21 16:56] LABS: Troponin-I High Sensitivity < 2.7 ng/L (<3.5-17.0)
[2024-10-21 17:14] VITALS: BP 137/77; PULSE 108; RESP 18; TEMP 36.4; O2SAT 100
== END 2024-10-21 17:14 | disposition home or self-care (01) ==
PROVIDERS: Physician Assistant Medical; Emergency Provider Emergency Medicine
DX: U07.1 COVID-19 (principal); D50.9 Iron deficiency anemia, unspecified; R07.9 Chest pain, unspecified; E53.8 Deficiency of other specified B group vitamins; J45.909 Unspecified asthma, uncomplicated
CPT/HCPCS: 0241U; 36415; 71046; 80053; 83735; 84484; 85025; 85379; 93005; 96372; 99284; J1885

== ENCOUNTER → 2024-10-21 15:25 | Outpatient (BNV) | payer MEDICAID, SELFPAY | PROVIDERS: Emergency Provider Emergency Medicine; Visit Provider Specialist | DX: R05.9 Cough, unspecified (principal) | CPT/HCPCS: 71046 ==

== ENCOUNTER → 2024-10-21 15:54 | Outpatient (BNV) | payer MEDICAID, SELFPAY | PROVIDERS: Emergency Provider Emergency Medicine; Visit Provider Internal Medicine Cardiovascular Disease | DX: R00.0 Tachycardia, unspecified (principal) | CPT/HCPCS: 93010 ==